=== PATIENT | female | born 1990 | race African-American/Black ===

== ENCOUNTER 2019-02-20 04:48 | Inpatient (IN) ==
[2019-02-20] MEDS ORDERED: ZOFRAN IV PRN (04:58)
[2019-02-20] MEDS ORDERED: STADOL IV PRN (04:58)
[2019-02-20] MEDS ORDERED: PEPCID PO PRN ×2 (04:58)
[2019-02-20] MEDS ORDERED: REGLAN PO PRN (04:58)
[2019-02-20] MEDS ORDERED: PEPCID IV PRN (04:58)
[2019-02-20] MEDS ORDERED: KEFZOL 1 GM/D5W 1 GM/50 ML IVPB IV PRN (04:58)
[2019-02-20] MEDS ORDERED: SODIUM CHLORIDE 0.9% INJ SCH (05:00)
[2019-02-20] MEDS ORDERED: PITOCIN 30 UNITS/NS 30 UNIT/500 ML IV.SOLN IV SCH ×2 (05:00→15:15)
[2019-02-20] MEDS ORDERED: MINERAL OIL TOP PRN (05:01)
[2019-02-20] MEDS ORDERED: XYLOCAINE-MPF 1% INJ PRN ×2 (05:01→15:15)
[2019-02-20] MEDS: LR 1,000 ML IV SCH ×4 (05:50→12:47)
[2019-02-20 06:12] LABS: URINE SOURCE VOIDED
[2019-02-20 06:15] LABS: BASO# 0.01 X1000 (0.0-0.2); BASO% 0.1 % (0.0-0.8); EOS# 0.12 X1000 (0.0-0.7); HEMATOCRIT 31.4 % (37.0-47.0); HEMOGLOBIN 10.4 g/dL (12.0-16.0); IMM GRAN# 0.03 X1000 (0.0-0.04); IMM GRAN% 0.3 % (0.0-0.5); LYMPH# 1.74 X1000 (1.2-3.4); LYMPH% 14.6 % (20.5-51.1); MCH 29.4 PG (27-31); MCHC 33.1 g/dL (33-37); MCV 88.7 FL (81-99); MONO# 0.82 X1000 (0.11-0.59); MONO% 6.9 % (1.7-9.3); MPV 10.2 FL (7.4-10.4); NEUT# 9.23 X1000 (1.4-6.5); NEUT% 77.1 % (42.2-75.2); PLT 202 X1000 (130-400); RBC 3.54 XMIL (4.2-5.4); RDW 14.4 % (11.5-14.5); WBC 11.95 X1000 (4.8-10.8)
[2019-02-20 06:23] LABS: UR AMPHETAMINES QUAL NONE DETECTED (NONE DETECT); UR BARBITUATES QUAL NONE DETECTED (NONE DETECT); UR BENZODIAZEPIN QUAL NONE DETECTED (NONE DETECT); UR CANNABINOIDS QUAL NONE DETECTED (NONE DETECT); UR COCAINE QUAL NONE DETECTED (NONE DETECT); UR METHADONE QUAL NONE DETECTED (NONE DETECT); UR METHAMPHETAMINE QUAL NONE DETECTED (NONE DETECT); UR OPIATES QUAL NONE DETECTED (NONE DETECT); UR OXYCODONE QUAL NONE DETECTED (NONE DETECT); UR PCP QUAL NONE DETECTED (NONE DETECT); UR PROPOXYPHENE QUAL NONE DETECTED (NONE DETECT); UR TCA QUAL NONE DETECTED (NONE DETECT)
[2019-02-20 06:24] LABS: BILIRUBIN URINE NEGATIVE (NEGATIVE); BLOOD URINE NEGATIVE (NEGATIVE); CLARITY SL. CLOUDY (CLEAR); COLOR YELLOW; GLUCOSE URINE NEGATIVE (NEGATIVE); KETONE URINE 2+(Moderate) mg/dL (NEGATIVE); LEUKOCYTES URINE 2+ (NEGATIVE); NITRITE URINE NEGATIVE (NEGATIVE); PH URINE 6.5; PROTEIN URINE NEGATIVE (NEGATIVE); UROBILINOGEN URINE NORMAL
[2019-02-20] MEDS ORDERED: FENTANYL-BUPIV-NS 2 MCG-0.1% 200 ML EPIDURAL PRN (07:21)
[2019-02-20] MEDS ORDERED: NAROPIN 0.2% INJ ONE (07:45)
--- NOTE | 2019-02-20 07:45 | HISTORY AND PHYSICAL ---
HISTORY OF PRESENT ILLNESS: The patient is a 28-year-old G3, P2, 0-0-2 at 40 weeks and 4 days who presents for induction of labor secondary to postdates. The patient reports good movement. Denies contractions, leakage of fluid or vaginal bleeding. MEDICATIONS: vitamins. PAST MEDICAL HISTORY: depression, anemia, and moderate cervical dysplasia. PAST SURGICAL HISTORY: None. OBSTETRICAL HISTORY: G3, P2, 0-0-2. Two prior full-term vaginal deliveries. Menarche age 12 MOTHER HELPER HISTORY: Denies STD exposure. FAMILY HISTORY: Noncontributory. SOCIAL HISTORY: Positive THC use. Denies tobacco or alcohol use. ALLERGIES: No known drug allergies. PHYSICAL EXAMINATION: VITAL SIGNS: Temperature 98.5 degrees, respiration rate 18, blood pressure 129/71, O2 saturation 99% on room air, and weight 189 pounds. Height 5 feet 8 inches. PHYSICAL EXAMINATION: GENERAL: No acute distress. Alert, awake, no acute distress and oriented x3. CARDIOVASCULAR: Regular rate and rhythm. Positive S1, S2. RESPIRATORY: Clear to auscultation bilaterally. No rhonchi, rales, or wheezing. ABDOMEN: Gravid and nontender. Fundal height 39 cm. EXTREMITIES: +1 edema. No calf tenderness. PELVIC: Sterile vaginal exam 4 cm dilated, 50% effaced, and -3 station. LABORATORY: Group B strep negative. WBCs 11.98, hemoglobin 10.4, hematocrit 31.4, and platelets 202,000. ASSESSMENT: Mrs. Wu is a 28-year-old G3, P2, 0-0-2 at 40 weeks and 4 days who presents for induction of labor. PLAN: 1. Admit to Labor and Delivery. 2. Obtain routine labor labs. 3. Induction/augmentation with Pitocin. 4. Estimated weight 7 pounds. 5. Anticipate vaginal delivery.
[2019-02-20] MEDS ORDERED: AMBIEN PO PRN (15:15)
[2019-02-20] MEDS ORDERED: BENADRYL PO PRN (15:15)
[2019-02-20] MEDS ORDERED: M-M-R II VACCINE SUBQ ONE (15:15)
[2019-02-20] MEDS ORDERED: BOOSTRIX VACCINE IM ONE (15:15)
[2019-02-20] MEDS ORDERED: PITOCIN IM PRN (15:15)
[2019-02-20] MEDS ORDERED: PITOCIN 20 UNITS/NS 20 UNITS/1,000 ML IV.SOLN INJ SCH (15:15)
[2019-02-20] MEDS ORDERED: MINERAL OIL PO PRN (15:15)
[2019-02-20] MEDS ORDERED: ATARAX PO PRN (15:15)
[2019-02-20] MEDS ORDERED: CYTOTEC PO PRN (15:15)
[2019-02-20] MEDS ORDERED: HYDROXYZINE IM PRN (15:15)
[2019-02-20] MEDS ORDERED: BENADRYL IV PRN (15:15)
--- NOTE | 2019-02-20 15:52 | OPERATIVE NOTE ---
PROCEDURE DATE: 02/20/2019 DELIVERY NOTE: The patient progressed to completely dilated and pushing. Spontaneous vaginal delivery of a female infant weighing 8 pounds 13 ounces. Apgars 9 and 10 at one and five minutes respectively over an intact perineum. No nuchal cord identified. Shoulder dystocia noted. Delivery of the posterior arm completed successfully within 15 sec. without complication. The placenta was delivered intact with three-vessel cord. Cord blood sample was obtained. Estimated blood loss 200 mL. Anesthesia epidural. Counts: All counts were correct x2. [facility]
[2019-02-20] MEDS: MOTRIN PO PRN (18:36)
[2019-02-20] MEDS: PERI MEDS (DERMOPLAST/NUPERCAINAL/TUCKS) MISC PRN (18:36)
[2019-02-20] MEDS: PERICOLACE PO SCH (21:02)
[2019-02-20] MEDS: TYLENOL PO PRN (22:56)
[2019-02-21] MEDS: MOTRIN PO PRN ×3 (03:22→21:41)
[2019-02-21] MEDS: TYLENOL PO PRN ×2 (04:14→09:38)
[2019-02-21 05:10] LABS: BASO# 0.02 X1000 (0.0-0.2); BASO% 0.2 % (0.0-0.8); EOS# 0.16 X1000 (0.0-0.7); EOS% 1.2 % (0.0-10.0); HEMATOCRIT 27.6 % (37.0-47.0); HEMOGLOBIN 8.9 g/dL (12.0-16.0); IMM GRAN# 0.04 X1000 (0.0-0.04); IMM GRAN% 0.3 % (0.0-0.5); LYMPH# 1.84 X1000 (1.2-3.4); MCHC 32.2 g/dL (33-37); MCV 89.9 FL (81-99); MONO# 0.87 X1000 (0.11-0.59); MONO% 6.6 % (1.7-9.3); NEUT# 10.18 X1000 (1.4-6.5); NEUT% 77.7 % (42.2-75.2); PLT 173 X1000 (130-400); RBC 3.07 XMIL (4.2-5.4); RDW 14.3 % (11.5-14.5); WBC 13.11 X1000 (4.8-10.8)
--- NOTE | 2019-02-21 07:26 | OB/GYN PROGRESS NOTE ---
Progress Note OB - . OB Progress Note: Vital Signs - 24 hr 02/20/19 10:56 02/20/19 15:10 02/20/19 15:20 Temperature 97.3 F L 97.4 F L Pulse Rate 98 H 94 H 95 H Respiratory Rate 20 20 20 Blood Pressure 120/58 Blood Pressure [Right Arm] 135/68 131/70 O2 Sat by Pulse Oximetry 100 100 100 02/20/19 15:30 02/20/19 15:40 02/20/19 15:50 Temperature Pulse Rate 95 H 94 H 93 H Respiratory Rate 20 20 20 Blood Pressure Blood Pressure [Right Arm] 131/72 126/70 126/71 O2 Sat by Pulse Oximetry 99 99 100 02/20/19 16:00 02/20/19 16:10 02/20/19 18:41 Temperature 98 F 98.5 F Pulse Rate 88 95 H 98 H Respiratory Rate 20 20 20 Blood Pressure 124/64 135/82 Blood Pressure [Right Arm] 123/67 124/64 O2 Sat by Pulse Oximetry 100 100 100 02/20/19 20:00 02/21/19 00:25 02/21/19 03:25 Temperature 97.6 F 98 F 97.6 F Pulse Rate 95 H 93 H 92 H Respiratory Rate 16 16 18 Blood Pressure 126/71 115/73 136/91 Blood Pressure [Right Arm] O2 Sat by Pulse Oximetry 100 100 100 02/21/19 05:30 Temperature Pulse Rate 87 Respiratory Rate 16 Blood Pressure 126/83 Blood Pressure [Right Arm] O2 Sat by Pulse Oximetry Laboratory Results - last 24 hr 02/21/19 04:56 WBC 13.11 H RBC 3.07 L Hgb 8.9 L Hct 27.6 L MCV 89.9 MCH 29.0 MCHC 32.2 L RDW Std Deviation 14.3 Plt Count 173 MPV 10.0 Immature Gran % (Auto) 0.3 Neut % (Auto) 77.7 H Lymph % (Auto) 14.0 L [place] % (Auto) 6.6 Eos % (Auto) 1.2 Baso % (Auto) 0.2 Immature Gran # (Auto) 0.04 Neut # (Auto) 10.18 H Lymph # (Auto) 1.84 [place] # (Auto) 0.87 H Eos # (Auto) 0.16 Baso # (Auto) 0.02 S. patient resting in bed. She is ambulating well, tolerating regular food and urinating well. She is bottle feeding baby, her pain is controlled and her bleeding is light. O. HEENT: Normocephalic, atraumatic Chest: CTAB Heart: R/R/R Abdomen: soft, NT, uterus at the umbilicus Ext: no edema A/P 28yo s/p IVD doing well. Routine care.
[2019-02-21] MEDS: PRECARE PO SCH (09:38)
[2019-02-21] MEDS: FERROUS SULFATE PO SCH (09:38)
[2019-02-21] MEDS: PERI MEDS (DERMOPLAST/NUPERCAINAL/TUCKS) MISC PRN (16:26)
[2019-02-21] MEDS: PERICOLACE PO SCH (20:36)
[2019-02-22] MEDS: TYLENOL PO PRN (03:27)
[2019-02-22] MEDS ORDERED: PNEUMOVAX 23 IM ONE (07:15)
--- NOTE | 2019-02-22 07:20 | OB/GYN PROGRESS NOTE ---
Progress Note OB - . Patient Problems: Current Active Problems Problem Status Onset Vaginal delivery Acute Severe pre-eclampsia Acute OB Progress Note: Vital Signs - 24 hr 02/21/19 07:48 02/21/19 16:29 02/21/19 22:00 Temperature 97.3 F L 98.4 F 97.9 F Pulse Rate 83 102 H 105 H Respiratory Rate 16 20 18 Blood Pressure 136/86 113/66 133/76 O2 Sat by Pulse Oximetry 100 100 02/22/19 03:30 Temperature 97.1 F L Pulse Rate 106 H Respiratory Rate 18 Blood Pressure 132/83 O2 Sat by Pulse Oximetry HPI: Pt seen and examined. Currently w/o complaints. Ambulating and urinating w/o difficulty. Tolerating regular diet. Denies fever/chills/n/v. +bottle feeding and decreased lochia. VS: Please see above GEN: NAD CV: RRR, +S1S2 RESP: CTA b/l ABD: soft, NTTP, FF below umbilicus EXT: neg CT ASSESSMENT: 28 yo PPD#2 s/p PLAN: -pain well controlled with PO pain meds -OOB to ambulation -regular diet -desires female sterilization, will f/u 5 weeks PP for pre-op appt -plan for d/c home today
[2019-02-22 07:33] VITALS: BP 124/80
[2019-02-22] MEDS: MOTRIN PO PRN (09:33)
[2019-02-22] MEDS: FERROUS SULFATE PO SCH (09:33)
[2019-02-22] MEDS: PRECARE PO SCH (09:33)
== END 2019-02-22 12:35 | disposition home or self-care (01) | DRG 807 ==
LOC: P.LD 04:48
PROVIDERS: ADMIT Obstetrics & Gynecology; ATTEND Obstetrics & Gynecology
CPT/HCPCS: 59025; 80104; 80301; 80305; 81003; 85025; 86592; 90732; A9270; G0431; G0434; G0477; J2590; J2795; J7120